=== PATIENT | female | born 1960 | race Two or more races ===

== ENCOUNTER 2024-07-13 10:52 | Outpatient (REF) | payer OTHER, SELFPAY ==
[2024-07-13 11:00] VITALS: BP 156/72; PULSE 59; RESP 16; TEMP 36.2; O2SAT 98; BMI 30.6
== END 2024-07-13 10:53 | disposition home or self-care (01) ==
LOC: HO.MS 10:52
PROVIDERS: Visit Provider Ophthalmology
PROC: (CPT 66821; principal; 2024-07-13 12:10)
DX: H26.492 Other secondary cataract, left eye (principal)
CPT/HCPCS: 66821